=== PATIENT | male | born 1955 | race Caucasian/White ===

== ENCOUNTER 2023-08-25 07:00 | Outpatient (NON) | payer MEDICARE, SELFPAY | END 2023-08-25 07:01 | disposition home or self-care (01) | PROVIDERS: PCP Internal Medicine; Visit Provider Internal Medicine Gastroenterology | DX: Z86.010 Personal history of colon polyps (principal) | CPT/HCPCS: 88305 ==

== ENCOUNTER 2023-08-25 09:15 | Day surgery (SDC) | payer MEDICARE, SELFPAY ==
[2023-08-09 14:10] VITALS: BMI 31.6
--- NOTE | 2023-08-25 08:04 | P.PNAN_ITS ---
Anes - Initial Pre Proc Eval Procedure: Operation Date: 08/25/23 11:30 Proposed Procedures p Diagnostic Colonoscopy - Christophe Ventura MD Date/Time: 08/25/23 08:04 Surgeon: Christophe Ventura MD Pre Op Diagnosis: Personal history of colon polyps Patient Data Age: 68 Gender: M Height: 1.78 m Weight: 95 kg Allergies Allergy/AdvReac Type Severity Reaction Status Date / Time No Known Allergies Allergy Verified 08/25/23 10:13 Home Medications Medication Instructions Recorded Confirmed Type glimepiride 2 mg tablet 2 mg PO DAILY 08/16/23 08/25/23 History lisinopril 40 mg tablet 40 mg PO DAILY 08/16/23 08/25/23 History metformin 750 mg tablet,extended 750 mg PO DAILY 08/16/23 08/25/23 History release 24 hr quetiapine 50 mg tablet 25 mg PO BID 08/16/23 08/25/23 History rosuvastatin 20 mg tablet 20 mg PO DAILY 08/16/23 08/25/23 History Patient hx anesthesia problems: none Family hx anesthesia problems: none Results Review: All pre-operative results and documents have been reviewed as part of the pre- operative evaluation. COUNT INCLUDES THE [facility] Past Medical History Medical History (Updated 08/25/23 @ 10:31 by Christophe Ventura MD) Diabetes type 2, controlled Hyperlipidemia Hypertension Social History Social History Smoking status: Never smoker Alcohol intake: never Substance use: never Substance use type: does not use Living arrangements: alone Spiritual care concerns: No Anes - Eval Final PreProcedure Day of Procedure 08/25/23 08:04 Patient weight: obese Heart: regular rate and rhythm Lungs: clear to auscultation Airway: Mallampati scale class II Neurological: alert and oriented Last oral intake: >/= 8 hours ASA classification: III Emergent: no Anesthetic plan: proceed Anesthesia type and monitoring: general GIVS and standard monitoring Results Review: All pre-operative results and documents have been reviewed as part of the pre-operative evaluation. Informed Consent: The patient's anesthetic plan and its attendant risks and benefits were discussed with the patient/family/POA. Questions were solicited and answers provided to the satisfaction of the patient/family/POA.
--- NOTE | 2023-08-25 10:30 | PM.HPGS ---
History of Present Illness History of Present Illness Consent: Risks, benefits, and alternatives have been discussed and questions answered. Patient agrees to proceed with procedure. Chief complaint: Personal history of colon polyps Narrative: Constantino Dsouza is a 68 year old male presents for screening colonoscopy. Patient was found to have benign colon polyps 5 years ago. Patient referred for colonoscopy. He reports that his current weight appetite and bowel sounds are normal. Patient is abdominal pain. He has had no bleeding. Family history noncontributory. Review of Systems Review of Systems: All systems reviewed & are unremarkable except as noted in HPI and below PMFSH Past Medical History Medical History (Updated 08/25/23 @ 10:31 by Christophe Ventura MD) Diabetes type 2, controlled Hyperlipidemia Hypertension Social History Social History Smoking status: Never smoker Alcohol intake: never Substance use: never Substance use type: does not use Living arrangements: alone Spiritual care concerns: No Meds Home Medications and Allergies Home Medications Medication Instructions Recorded Confirmed Type glimepiride 2 mg tablet 2 mg PO DAILY 08/16/23 08/25/23 History lisinopril 40 mg tablet 40 mg PO DAILY 08/16/23 08/25/23 History metformin 750 mg tablet,extended 750 mg PO DAILY 08/16/23 08/25/23 History release 24 hr quetiapine 50 mg tablet 25 mg PO BID 08/16/23 08/25/23 History rosuvastatin 20 mg tablet 20 mg PO DAILY 08/16/23 08/25/23 History Allergies Allergy/AdvReac Type Severity Reaction Status Date / Time No Known Allergies Allergy Verified 08/25/23 10:13 Exam Narrative: Physical exam reveals patient alert. Vital signs stable. HEENT exam is unremarkable. Patient is anicteric. Lungs are clear to auscultation and to percussion. Heart is without murmur or extra sounds. Abdomen bowel sounds are present soft nontender with no organomegaly. Digital external rectal exam normal. Assessment and Plan Assessment and plan (1) History of colon polyps: Code(s): Z86.010 - Personal history of colonic polyps Status: Acute Assessment and Plan: Patient has a history of having had colon polyps by previous colonoscopy 5 years ago. Patient referred for follow-up screening colonoscopy.
[2023-08-25 10:32] VITALS: BP 152/85; PULSE 80; RESP 15; TEMP 36.9; O2SAT 97
[2023-08-25 10:32] LABS: Glucose Point of Care 256 mg/dl (65-105)
[2023-08-25] MEDS: LACTATED RINGERS 1,000 ML 150 ML IV CONT (10:35)
--- NOTE | 2023-08-25 10:53 | SUR.PREOP ---
DR SIFUENTES NOTIFIED OF BLOOD SUGAR 256. NO NEW ORDERS
[2023-08-25 11:23] VITALS: BP 103/62; PULSE 69; RESP 16; O2SAT 97
[2023-08-25 11:33] VITALS: BP 112/73; PULSE 66; RESP 16; O2SAT 96
[2023-08-25 11:43] VITALS: BP 131/77; PULSE 68; RESP 16; O2SAT 96
--- NOTE | 2023-08-25 13:21 | WPDANESPN ---
Anes - Prog Note Post-Op Date/Time: 08/25/23 13:21 Cardiovascular status: normal Respiratory status: normal Airway patency: baseline Mental status: baseline Post-Op hydration status: normal Vital Signs: Last Vital Signs Temp 36.9 C 08/25/23 10:32 Pulse 68 08/25/23 11:43 Resp 16 08/25/23 11:43 BP 131/77 08/25/23 11:43 Pulse Ox 96 08/25/23 11:43 O2 Del Method Room Air 08/25/23 11:43 Pain Score (VAS): 0 I/O: Intake & Output 08/24/23 08/25/23 08/25/23 23:59 07:59 15:59 Intake Total 550 Balance 550 08/25/23 10:28 POC Capillary Glucose 256 H Post-procedural complaints: none Patient Feedback: Patient satisfied with anesthetic care. Other Findings: Patient vital signs back to baseline. Patient denies nausea and vomiting. Patient's pain under control. Patient OK for discharge.
== END 2023-08-25 12:00 | disposition home or self-care (01) ==
PROVIDERS: PCP Internal Medicine; Visit Provider Internal Medicine Gastroenterology
PROC: 0DJD8ZZ Inspection of Lower Intestinal Tract, Via Natural or Artificial Opening Endoscopic (ICD-10-PCS; CPT 45378; principal; 2023-08-25 11:30)
DX: Z86.010 Personal history of colon polyps (principal); D12.3 Benign neoplasm of transverse colon; K57.32 Diverticulitis of large intestine without perforation or abscess without bleeding; K64.8 Other hemorrhoids
CPT/HCPCS: 45385